=== PATIENT | male | born 1975 | race Caucasian/White ===

== ENCOUNTER → 2019-10-30 | Outpatient (CLI) | payer OTHER ==
--- NOTE | 2019-10-30 11:47 | XR ---
EXAMINATION TYPE: XR elbow complete RT DATE OF EXAM: 10/30/2019 CLINICAL HISTORY: Right elbow pain TECHNIQUE: Frontal, lateral and oblique images of the right elbow are obtained. COMPARISON: None FINDINGS: There is no acute fracture/dislocation evident in the right elbow. Small olecranon enthes ophyte. No abnormal fat pad signs are seen. The overlying soft tissue appears unremarkable. IMPRESSION: There is no acute fracture or dislocation in the right elbow.
== END | disposition home or self-care (01) ==
LOC: RADXRMAIN 11:21
PROVIDERS: ATTEND Emergency Medicine
DX: S46.301A Unspecified injury of muscle, fascia and tendon of triceps, right arm, initial encounter (principal)